=== PATIENT | female | born 1940 | race Caucasian/White ===

== ENCOUNTER → 2020-01-18 10:12 | Outpatient (CLI) | payer MEDICARE ==
[2009-11-25 09:49] VITALS: BMI 22.4
== END | disposition home or self-care (01) ==
LOC: D.LAB 10:12
PROVIDERS: ATTEND Internal Medicine Gastroenterology
DX: C19 Malignant neoplasm of rectosigmoid junction (principal); Z86.010 Personal history of colon polyps; K64.0 First degree hemorrhoids